=== PATIENT | male | born 1990 | race African-American/Black ===

== ENCOUNTER 2021-08-16 08:18 | Emergency (ER) | payer OTHER ==
[~2021-08-16] VITALS: Ht 180.3 cm; Wt 81.2 kg
[2021-08-16 08:20] VITALS: BP 135/85
--- NOTE | 2021-08-16 08:52 | REP ---
INDICATION: pain COMPARISON: None. TECHNIQUE: AP, lateral, bilateral oblique views left foot. FINDINGS: The osseous structures and joint spaces are intact and normal. There is no evidence for acute fracture or dislocation. Surrounding soft tissues are unremarkable. No subcutaneous emphysema or radiodense foreign body. IMPRESSION: Age-appropriate left foot series. No acute fracture or dislocation. <Electronically signed by Vishal Peres > 08/16/21 [id number]
[2021-08-16] MEDS ORDERED: INDO50CA91 PO (11:38)
--- OUTSIDE RECORDS SUMMARY | 2021-08-16 11:53 | CCD ---
Author Author [facility] Organization [facility] Address Unknown Phone Unavailable Care Team Providers Care Project Manager/Team Coach Name Role Phone Peter Chi MD Unavailable Unavailable NosalPeter MD Unavailable Unavailable Nosal, Peter Partida MD Unavailable Unavailable Nosal, Peter Partida MD Unavailable Unavailable Nosal, Peter Partida MD Unavailable Unavailable Nosal, Peter Partida MD Unavailable Unavailable Nosal, Peter Partida MD Unavailable Unavailable Nosal, Peter Partida MD Unavailable Unavailable Nosal, Peter Partida MD Unavailable Unavailable Nosal, Peter Partida MD Unavailable Unavailable Re-disclosure Warning The records that you are about to access may contain information from federally-assisted alcohol or drug abuse programs. If such information is present, then the following federally mandated warning applies: This information has been disclosed to you from records protected by federal confidentiality rules (42 CFR part 2). The federal rules prohibit you from making any further disclosure of this information unless further disclosure is expressly permitted by the written consent of the person to whom it pertains or as otherwise permitted by 42 CFR part 2. A general authorization for the release of medical or other information is NOT sufficient for this purpose. The Federal rules restrict any use of the information to criminally investigate or prosecute any alcohol or drug abuse patient.The records that you are about to access may contain highly sensitive health information, the redisclosure of which is protected by Article 27-F of the [facility] Public Health law. If you continue you may have access to information: Regarding HIV / AIDS; Provided by facilities licensed or operated by the [facility] Office of Mental Health; or Provided by the [facility] Office for People With Developmental Disabilities. If such information is present, then the following [facility] mandated warning applies: This information has been disclosed to you from confidential records which are protected by state law. State law prohibits you from making any further disclosure of this information without the specific written consent of the person to whom it pertains, or as otherwise permitted by law. Any unauthorized further disclosure in violation of state law may result in a fine or group home sentence or both. A general authorization for the release of medical or other information is NOT sufficient authorization for further disc losure. Encounters Encounter Providers Location Date Indications Data Source(s ) Outpatient Attender: Helga Chi MD 12/23/2020 01:25:27 PM EDT [facility] Patient admitted. Medications No Information Insurance Providers Payer name Policy type / Coverage type Policy ID Covered alliance party ID Covered alliance party's relationship to [place] Policy [place] Plan Information SELF PAY/NO SLIDE NA Self NA SELF PAY/NO SLIDE NA Self NA [facility] [employer] [id number] Problems, Conditions, and Diagnoses Code Display Name Description Problem Type Effective Dates Data Source(s) Z23 Encounter for immunization Encounter for immunization Diagnosis 12/23/2020 01:25:27 PM EDT [facility] Surgeries/Procedures No Information Results No Information Social History No Information
== END 2021-08-16 12:01 | disposition home or self-care (01) ==
LOC: M ED 08:18
DX: G57.92 Unspecified mononeuropathy of left lower limb (principal)

== ENCOUNTER → 2022-08-27 | Outpatient (CLI) | payer OTHER ==
[~2022-08-27] MED LIST: INDO50CA91 PO
== END ==
LOC: M PLAIMG 06:50
PROVIDERS: ATTEND Physician Assistant
DX: M54.17 Radiculopathy, lumbosacral region (principal)